=== PATIENT | female | born 1980 | race Caucasian/White ===

== ENCOUNTER → 2018-05-20 11:31 | Outpatient (REF) | payer MEDICAID, SELFPAY ==
--- NOTE | 2018-05-20 12:00 | PAPFT_PTH ---
PATIENT: Sigrid Rocha LOC: [facility] U#:[id number] AGE/SX: 45/F ROOM: RE05/20/[address]: Ann Sam : 1980 BED: DIS: SPEC #: [id number] RECD: 05/21/18 12:45 STATUS: GENET REQ #: [id number] JAZMINE: 05/20/18 12:[address]: Ann Sam DEPT: [facility] Cytology RECD BY: Angelita Galvan Tissues: 1 - CX/ENDOCX FOR PAP SMEARS Procedures: PAP THIN PREP/UVM Screening HPV DNA PROBE Comments: [id number] (CHLAMYDIA/GC)
[2018-05-22 15:32] LABS: GC Result Negative; Specimen Description SEE COMMENTS
[2018-05-22 15:51] LABS: Chlamydia Result Positive
== END ==
LOC: NCHCN 11:31
PROVIDERS: PCP Nurse Practitioner Family; Visit Provider Nurse Practitioner Family
DX: R31.9 Hematuria, unspecified (principal); Z11.3 Encounter for screening for infections with a predominantly sexual mode of transmission; Z12.4 Encounter for screening for malignant neoplasm of cervix; Z11.51 Encounter for screening for human papillomavirus (HPV)
CPT/HCPCS: 87491; 87591; 88142; 87086; 87624

== ENCOUNTER 2018-06-24 17:47 | Outpatient (REF) | payer MEDICAID, SELFPAY ==
[2018-06-26 14:17] LABS: Chlamydia Result Negative; GC Result Negative; Specimen Description URINE
== END 2018-06-24 18:07 ==
LOC: NCHCN 17:47
PROVIDERS: PCP Nurse Practitioner Family; Referring Provider Nurse Practitioner Family; Visit Provider Nurse Practitioner Family
DX: Z11.3 Encounter for screening for infections with a predominantly sexual mode of transmission (principal)
CPT/HCPCS: 87491; 87591

== ENCOUNTER 2018-06-25 12:48 | Outpatient (CLI) | payer MEDICAID, SELFPAY ==
--- NOTE | 2018-06-25 06:00 | DI.RAD_ITS ---
SYMPTOM/DIAGNOSIS: LUMBAR SPONDYLOSIS PAIN CLINIC: Fluoroscopy Time: 28.3 SECS Images submitted from the Pain Clinic demonstrate needle positioning over the facet joints at L3-4, L4-5 and L5-S1 in conjunction with injections carried out by Dr. Manrique. Please see the procedure report for further information.
[2018-06-25 12:57] VITALS: BP 127/84; PULSE 63; RESP 20; TEMP 36; O2SAT 98
--- NOTE | 2018-06-25 14:16 | PDOC.PAIN ---
Pain Clinic Procedure Note Current Active Problems Problem Status Onset Spondylosis of lumbar region without myelopathy or radiculopathy Chronic Lumbar/Sacral Medial Branch Blocks Bupivacaine GIA HARVEY has been referred to the [facility] for lumbar/sacral medial branch blocks. COMMENTS: Patient has low back pain with spondylosis and degenerative changes at L5/S1 ALIVIA HARVEY was interviewed and the medical record reviewed. There were no medical, pharmacologic, radiographic or other structural contraindications to attempting fluoroscopically guided local anesthetic lumbar/sacral medial branch blocks. Risks and expected side effects as well as potential benefit of the procedure were reviewed with ALIVIA HARVEY and voiced concerns addressed. The printed consent form was signed and witnessed. Standard time-out procedure was performed. ALIVIA HARVEY was placed in the prone position on the fluoroscopy table and automated blood pressure cuff and pulse oximeter applied. The skin entry points for approaching the anatomic target points of the segmental medial branches of { bilateral L3, L4, L5} were identified with anfluoroscopy and marked. Following thorough Chlorhexadine preparation of the skin and draping and 1% lidocaine infiltration of the skin entry points and subcutaneous tissues, a 5 inch 22-gauge spinal needle was placed under fluoroscopic guidance down on to the target point for each respective segmental medial branch.Position was confirmed in A/P, oblique and lateral views. At each point .5ml 0.5% Bupivacaine was injected. ALIVIA HARVEY's vital signs were stable throughout the procedure and were as recorded in the docflowsheet by the nursing staff. Follow up plans and appointments were discussed with ALIVIA HARVEY. ALIVIA HARVEY was instructed to keep careful note of how the usual pain was modified by these injections. Specifically, ALIVIA HARVEY was asked to keep a pain diary for the next 24 hours using a numeric pain scale of 0-10 and report these results at the follow-up visit. Post procedure instruction was given as documented in the nursing documentation and having met discharge criteria, ALIVIA HARVEY was discharged from the [facility]. Based on the medial branches blocked today, if they patient has adequate relief and we are able to proceed to radiofrequency ablation, the treatment should result in the denervation of the { bilateral L4-5, L5-S1 FACET JOINTS}. We would expect to denervate a total of {4} facets during the radiofrequency ablation. COMMENTS: Patient will need 7 inch needles for the next and greater than 150 mm RF needle. Pain went from 4/10-0/10. She will follow-up a repeat block with 2% lidocaine for RF depending insurance. CC: Ann Sam
--- NOTE | 2018-06-25 14:21 | PDOC.PAIN_ITS ---
Pain Clinic Procedure Note Current Active Problems Problem Status Onset Spondylosis of lumbar region without myelopathy or radiculopathy Chronic Lumbar/Sacral Medial Branch Blocks Bupivacaine GIA HARVEY has been referred to the [facility] for lumbar/sacral medial branch blocks. COMMENTS: Patient has low back pain with spondylosis and degenerative changes at L5/S1 ALIVIA HARVEY was interviewed and the medical record reviewed. There were no medical, pharmacologic, radiographic or other structural contraindications to attempting fluoroscopically guided local anesthetic lumbar/sacral medial branch blocks. Risks and expected side effects as well as potential benefit of the procedure were reviewed with ALIVIA HARVEY and voiced concerns addressed. The printed consent form was signed and witnessed. Standard time- out procedure was performed. ALIVIA HARVEY was placed in the prone position on the fluoroscopy table and automated blood pressure cuff and pulse oximeter applied. The skin entry points for approaching the anatomic target points of the segmental medial branches of { bilateral L3, L4, L5} were identified with anfluoroscopy and marked. Following thorough Chlorhexadine preparation of the skin and draping and 1% lidocaine infiltration of the skin entry points and subcutaneous tissues , a 5 inch 22-gauge spinal needle was placed under fluoroscopic guidance down on to the target point for each respective segmental medial branch.Position was confirmed in A/P, oblique and lateral views. At each point .5ml 0.5% Bupivacaine was injected. ALIVIA HARVEY's vital signs were stable throughout the procedure and were as recorded in the docflowsheet by the nursing staff. Follow up plans and appointments were discussed with ALIVIA HARVEY. ALIVIA HARVEY was instructed to keep careful note of how the usual pain was modified by these injections. Specifically, ALIVIA HARVEY was asked to keep a pain diary for the next 24 hours using a numeric pain scale of 0-10 and report these results at the follow-up visit. Post procedure instruction was given as documented in the nursing documentation and having met discharge criteria, ALIVIA HARVEY was discharged from the [facility]. Based on the medial branches blocked today, if they patient has adequate relief and we are able to proceed to radiofrequency ablation, the treatment should result in the denervation of the { bilateral L4-5, L5-S1 FACET JOINTS}. We would expect to denervate a total of {4} facets during the radiofrequency ablation. COMMENTS: Patient will need 7 inch needles for the next and greater than 150 mm RF needle. Pain went from 4/10-0/10. She will follow-up a repeat block with 2 % lidocaine for RF depending insurance. CC: Ann Sam
[2018-06-25] MEDS: Omnipaque 240 MG/ML 50 ML BTL IJ (14:26)
[2018-06-25] MEDS: Bupivacaine 0.5% Pres-Free 30 ML VIAL IJ (14:26)
[2018-06-25 14:27] VITALS: BP 135/79; PULSE 81; RESP 18; O2SAT 99
== END 2018-06-25 13:08 ==
PROVIDERS: PCP Nurse Practitioner Family; Visit Provider Anesthesiology Pain Medicine
DX: M47.816 Spondylosis without myelopathy or radiculopathy, lumbar region (principal); G89.29 Other chronic pain
CPT/HCPCS: 64493 ×2; 64494 ×2; 64495 ×2; 72100; 76000; Q9967

== ENCOUNTER 2018-07-16 11:38 | Outpatient (CLI) | payer MEDICAID, SELFPAY ==
[2018-07-16 11:42] VITALS: BP 122/83; PULSE 65; RESP 16; TEMP 36.1; O2SAT 100
[2018-07-16 12:50] VITALS: BP 128/89; PULSE 68; RESP 20; O2SAT 100
--- NOTE | 2018-07-16 12:51 | DI.RAD_ITS ---
SYMPTOMS/DIAGNOSIS: LUMBAR SPONDYLOSIS, LUMBAR MEDIAL BRANCH BLOCK PAIN CLINIC: Fluoroscopy Time: 66.6 sec Images submitted from the pain demonstrate needle positioning over the lower lumbar spine in conjunction with a lumbar medial branch block. Please see Dr. Allan's procedure report for further information.
--- NOTE | 2018-07-16 12:56 | PDOC.PAIN_ITS ---
Pain Clinic Procedure Note Current Active Problems Problem Status Onset Spondylosis of lumbar region without myelopathy or radiculopathy Chronic Lumbar/Sacral Medial Branch Blocks #2 GIA HARVEY has been referred to the [facility] for lumbar/sacral medial branch blocks. COMMENTS: She did great with the first LMBB. Patient was interviewed and the medical record reviewed. There were no medical , pharmacologic, radiographic or other structural contraindications to attempting fluoroscopically guided local anesthetic lumbar/sacral medial branch blocks. Risks and expected side effects as well as potential benefit of the procedure were reviewed and voiced concerns addressed. The printed consent form was signed and witnessed. Standard time-out procedure was performed. Patient was placed in the prone position on the fluoroscopy table and automated blood pressure cuff and pulse oximeter applied. The skin entry points for approaching the anatomic target points of the segmental medial branches of bilateral L3-L5DR were identified with fluoroscopy and marked. Following thorough Chlorhexadine preparation of the skin and draping and 1% lidocaine infiltration of the skin entry points and subcutaneous tissues, a 22 gauge 7 spinal needle was placed under fluoroscopic guidance down on to the target point for each respective segmental medial branch.Position was confirmed in A/P, oblique and lateral views with 0.25ml of omnipaque 240. At this point 0.5ml of 1% Lidocaine was injected to each segmental branch nerve. The needles were removed without difficulty. Vital signs were stable throughout the procedure and were as recorded in the docflowsheet by the nursing staff. Follow up plans and appointments were discussed and was instructed to keep careful note of how the usual pain was modified by these injections. Specifically was asked to keep a pain diary for the next 24 hours using a numeric pain scale of 0-10 and report these results at the follow-up visit. Post procedure instruction was given as documented in the nursing documentation and having met discharge criteria. Patient was discharged from the [facility]. Based on the medial branches blocked today, if the patient has adequate relief and we are able to proceed to radiofrequency ablation, the treatment should result in the denervation of the bilateral L4-L5 and L5-S1 FACET JOINTS. We would expect to denervate a total of 4 facets during the radiofrequency ablation. COMMENTS:She will call back with her 1-4 hour post-procedure pain scores. Quintin Allan DO, MPH [facility] - Subspecialty Board Certification in Pain Medicine CC: Ann Sam
[2018-07-16] MEDS: Lidocaine 2% Pres-Free 5 ML VIAL IJ (13:05)
[2018-07-16] MEDS: Omnipaque 240 MG/ML 50 ML BTL IJ (13:05)
== END 2018-07-16 11:58 ==
PROVIDERS: PCP Nurse Practitioner Family; Visit Provider Preventive Medicine Occupational Medicine
DX: M47.816 Spondylosis without myelopathy or radiculopathy, lumbar region (principal)
CPT/HCPCS: 64493 ×2; 64494 ×2; 72100; Q9967

== ENCOUNTER → 2018-08-05 | Outpatient (CLI) | payer MEDICAID, SELFPAY ==
--- NOTE | 2018-08-05 06:00 | DI.RAD_ITS ---
SYMPTOM/DIAGNOSIS: LUMBAR SPONDYLOSIS C-ARM: Fluoroscopy Time: 38.0 seconds/25.33mGy Fluoroscopy was utilized by Dr. Manrique during the performance of a bilateral lumbar medial branch block. Please refer to the procedure report for complete details.
[2018-08-05 11:46] VITALS: BP 118/84; PULSE 62; RESP 18; TEMP 36.8; O2SAT 98
[2018-08-05] MEDS: Midazolam 2 MG/2 ML VIAL IVP ×2 (12:18→12:26)
[2018-08-05] MEDS: fentaNYL 100 MCG/2 ML VIAL IVP ×2 (12:18→12:26)
[2018-08-05] MEDS: Lactated Ringers 1,000 ML 80 ML IV (12:19)
[2018-08-05 12:50] VITALS: BP 135/85; PULSE 69; RESP 12; O2SAT 97
--- NOTE | 2018-08-05 12:59 | PDOC.PAIN ---
Pain Clinic Procedure Note Current Active Problems Problem Status Onset Spondylosis of lumbar region without myelopathy or radiculopathy Chronic LUMBAR/SACRAL MEDIAL BRANCH RADIOFREQUENCY GIA HARVEY has been referred to the [facility] for radiofrequency treatment of chronic axial back pain. GIA has had long standing back pain thought to be facet joint generated and which has been refractory to other therapies. Local anesthetic medial branch blocks or intra-articular facet joint injections resulted in GIA reporting reduction of the usual axial component of pain for at least the duration of the local anesthetic effect. COMMENTS: Patient had good relief from 2 medial branch blocks Patient was interviewed and the medical record reviewed. There were no medical, pharmacologic, radiographic or other structural contraindications to attempting fluoroscopically guided radiofrequency treatment. Risks and expected side effects as well as potential benefit of the procedure were reviewed and voiced concerns addressed. The printed consent form was signed and witnessed. Standard time-out procedure was performed. Patient was placed in the prone position on the fluoroscopy table and automated blood pressure cuff and pulse oximeter applied. The skin entry points for approaching the anatomic target points of the segmental medial branches of { bilateral: L3, 4, 5} were identified with fluoroscopy and marked. Following thorough Chlorhexadine preparation of the skin and draping and 1% lidocaine infiltration of the skin entry points and subcutaneous tissues, a single 18 guage curved 20 cm 10mm active tip radiofrequency cannula was placed under fluoroscopic guidance along or across the anatomic course of each respective segmental medial branch. Each placement was stimulated at 50Hz and les then 0.5V for medial branch sensory localization and the at 2Hz and up to 3 times the sensory voltage without any evidence of distal myotomal stimulation. 1cc of 1% ;idocaine was injected at each site. At each placement a continuous mode radiofrequency treatment was done at 90 degrees C for 90secs and then rotated 180degrees and then repeated. This radiofrequency treatment should result in the denervation of the {/bilateral L4-5, L5-S1 FACET JOINTS}.~ A total of {4} facets were expected to be denervated from today's treatment. Vital signs were stable throughout the procedure and were as recorded in the docflowsheet by the nursing staff. If given, dosages of intravenous drugs for anxiolysis and analgesia were documented in the Medication Administration Record (MAR). Follow up plans and appointments were discussed. Post procedure instruction was given as documented in the nursing documentation and having met discharge criteria, GIA was discharged from the [facility]. COMMENTS: Versed 2 mg and fentanyl 100 g given. Patient will follow-up as needed. CC: Ann Sam
--- NOTE | 2018-08-05 13:02 | PDOC.PAIN_ITS ---
Pain Clinic Procedure Note Current Active Problems Problem Status Onset Spondylosis of lumbar region without myelopathy or radiculopathy Chronic LUMBAR/SACRAL MEDIAL BRANCH RADIOFREQUENCY GIA HARVEY has been referred to the [facility] for radiofrequency treatment of chronic axial back pain. GIA has had long standing back pain thought to be facet joint generated and which has been refractory to other therapies. Local anesthetic medial branch blocks or intra- articular facet joint injections resulted in GIA reporting reduction of the usual axial component of pain for at least the duration of the local anesthetic effect. COMMENTS: Patient had good relief from 2 medial branch blocks Patient was interviewed and the medical record reviewed. There were no medical , pharmacologic, radiographic or other structural contraindications to attempting fluoroscopically guided radiofrequency treatment. Risks and expected side effects as well as potential benefit of the procedure were reviewed and voiced concerns addressed. The printed consent form was signed and witnessed. Standard time-out procedure was performed. Patient was placed in the prone position on the fluoroscopy table and automated blood pressure cuff and pulse oximeter applied. The skin entry points for approaching the anatomic target points of the segmental medial branches of { bilateral: L3, 4, 5} were identified with fluoroscopy and marked. Following thorough Chlorhexadine preparation of the skin and draping and 1% lidocaine infiltration of the skin entry points and subcutaneous tissues, a single 18 guage curved 20 cm 10mm active tip radiofrequency cannula was placed under fluoroscopic guidance along or across the anatomic course of each respective segmental medial branch. Each placement was stimulated at 50Hz and les then 0.5V for medial branch sensory localization and the at 2Hz and up to 3 times the sensory voltage without any evidence of distal myotomal stimulation. 1cc of 1% ;idocaine was injected at each site. At each placement a continuous mode radiofrequency treatment was done at 90 degrees C for 90secs and then rotated 180degrees and then repeated. This radiofrequency treatment should result in the denervation of the {/ bilateral L4-5, L5-S1 FACET JOINTS}.~ A total of {4} facets were expected to be denervated from today's treatment. Vital signs were stable throughout the procedure and were as recorded in the docflowsheet by the nursing staff. If given, dosages of intravenous drugs for anxiolysis and analgesia were documented in the Medication Administration Record (MAR). Follow up plans and appointments were discussed. Post procedure instruction was given as documented in the nursing documentation and having met discharge criteria, GIA was discharged from the [facility]. COMMENTS: Versed 2 mg and fentanyl 100 g given. Patient will follow-up as needed. CC: Ann Sam
== END ==
PROVIDERS: PCP Nurse Practitioner Family; Visit Provider Anesthesiology Pain Medicine
DX: M47.816 Spondylosis without myelopathy or radiculopathy, lumbar region (principal); G89.29 Other chronic pain
CPT/HCPCS: 64635 ×2; 64636 ×2; 72100; J2250; J3010

== ENCOUNTER 2018-11-01 10:49 | Emergency (ER) | payer MEDICAID, SELFPAY ==
--- NOTE | 2018-11-01 11:05 | NUR.NOTE ---
pt states that she developed a sore throat 4 days ago which developed to cough fever and chills pt has been in contact with sick child however child was not diagnosed pt complains of right ear pain 8/10 nnd 9/10 pain when she coughs
[2018-11-01 11:07] VITALS: BP 138/94; PULSE 97; RESP 16; TEMP 36.5; O2SAT 95
[2018-11-01] MEDS: Ibuprofen 400 MG TAB PO (12:49)
--- NOTE | 2018-11-01 12:55 | W.ED.GENAD ---
Discharge Plan Disposition Patient Disposition: HOME Condition: Stable Discharge Details Chief Complaint: GenMedical Clinical Impression: Influenza Primary Care Provider: Ann Sam ED Provider: Neelam Davis Home Meds and New Rx's Prescriptions: New oseltamivir [Tamiflu] 75 mg capsule 75 mg PO BID 5 Days Qty: 9 RF: 0 Continued ibuprofen 800 MG tablet 800 mg PO TID RF: 0 albuterol sulfate [ProAir HFA] 8.5 GM HFA aerosol inhaler 2 puff Inhalation Q4H PRN RF: 0 komybripjafq-Ko-dzjb-minerals [Women's Daily Formula] 1 EACH tablet 1 tab-cap PO DAILY RF: 0 Tens Units and Tens Electrodes [Cefaly] 1 EACH COMBO..PKG Miscellaneous Qty: 1 RF: 0 sumatriptan succinate [Imitrex] 25 MG tablet 25 mg PO PRN PRNRF: 0 cyclobenzaprine 10 MG tablet 10 mg PO Q8H PRN PRNQty: 20 RF: 0 Discharge Instructions Instructions: Oseltamivir (By mouth), Influenza (ED) Additional Instructions: Please return immediately to the emergency department if you develop any new or worsening symptoms or if you become otherwise concerned. It is extremely important that you make an appointment to be seen by your primary care doctor soon as possible and follow-up for this visit. Referrals: Ann Sam [Primary Care Provider] - Discharge Data Discharge Date/Time-TO BE ENTERED AT DEPARTURE: 11/01/18 15:19 Medical Decision Making Sigrid Cardoza 38-year-old with history of asthma, depression presenting to the emergency department 4 days of cough, generalized body aches, sore throat, ear pain. On exam patient is nontoxic appearing. Benign cardiopulmonary exam. Benign ENT exam. Concern for pneumonia versus influenza versus other viral respiratory infection. Exam/history not consistent with dehydration, sepsis, meningitis, ACS, PE, other acute emergent life-threatening process. Plan for chest x-ray, influenza swab, ibuprofen. Per Radiology: PA AND LATERAL CHEST: The heart size is normal. The lungs appear clear. No infiltrate or effusion is seen. IMPRESSION: Negative chest xray. Flu swab positive. Rx for Tamiflu. Had a lengthy discussion with the patient regarding return to emergency department cautions, home care, and importance of outpatient follow-up since possible with her PCP. Patient verbalized understanding of the plan and is amenable. Medical Records Medical records reviewed: Yes I reviewed the patient's medical records. Imaging Data Radiologic Study: Attestation: I personally reviewed and interpreted this imaging study as follows: Lab Data Lab results reviewed: Yes I reviewed the patient's lab results. HPI General Mode of arrival: ambulatory. Date/Time Provider Initiated Documentation: 11/01/18 11:18. Limitations to Documentation: no limitations. Information obtained by: patient, RN notes reviewed and old records reviewed. HPI Narrative: Sigrid Cardoza 38-year-old woman with history of asthma, depression presenting to the emergency department with cough. Patient reports that 4 days ago she developed a mild sore throat, cough, generalized body aches, nasal congestion, and fatigue. Patient has also had subjective fevers at home. She reports that she has chest pain during coughing, body aches, and ear pain. No other pain. Patient reports that the sore throat resolved 2 days ago. She denies shortness of breath, vomiting, diarrhea, skin rash. She reports that she has been eating and drinking as usual. No recent travel. Related Data Home Medications Medication Instructions Recorded Confirmed sumatriptan succinate [Imitrex] 25 mg PO PRN PRN 12/24/14 08/05/18 cyclobenzaprine 10 mg PO Q8H PRN PRN #20 tab 07/08/17 08/05/18 albuterol sulfate [ProAir HFA] 2 puff INHALATION Q4H PRN inhaler 04/25/18 08/05/18 ibuprofen 800 mg PO TID tab-cap 04/25/18 08/05/18 vszpdwirgzlu-Ai-syou-minerals 1 tab-cap PO DAILY tab-cap 04/25/18 08/05/18 [Women's Daily Formula] oseltamivir [Tamiflu] 75 mg PO BID 5 Days #9 cap 11/01/18 Previous Rx's Medication Instructions Recorded cyclobenzaprine 10 mg PO Q8H PRN PRN #20 tab 07/08/17 oseltamivir [Tamiflu] 75 mg PO BID 5 Days #9 cap 11/01/18 Allergies Allergy/AdvReac Type Severity Reaction Status Date / Time migraine medication Allergy Itching Uncoded 11/01/18 11:10 General Stated Complaint: GenMedical RUPA: 3 Review of Systems Review of Systems Constitutional: Reports subjective fevers Eyes: denies eye pain ENT: denies facial pain, dental pain, reports resolved sore throat Cardiovascular: denies chest pain Respiratory: denies SOB, reports cough GI: denies abdominal pain, vomiting, diarrhea : denies flank pain MSK: denies back pain, neck pain, reports generalized arthralgias and myalgias Skin: denies rash Neuro: denies headaches, numbness, weakness PFSH Medical History Spondylosis of lumbar region without myelopathy or radiculopathy (Chronic) Chronic low back pain Eczema Irregular intermenstrual bleeding Right knee pain Social History Smoking/Tobacco Use Status: Former Tobacco Use Exam Narrative Exam Narrative: Constitutional: zfj-ablzj-neohqlmmq, pleasant, conversing normally HENT: head atraumatic/normocephalic/normal inspection, mucous membranes moist, normal posterior pharynx Eyes: conjunctiva normal, sclera normal, pupils 3mm b/l Neck: no stridor, normal ROM, trachea midline Chest: normal inspection Resp: normal work of breathing, LCTAB Cardio: normal rate, normal rhythm, no murmur appreciated Back: normal inspection, no rash Skin: warm, dry, normal color, no rash Neuro: alert, not altered, grossly non-focal, normal tone Ext: no edema Psych: normal mood, normal affect, normal behavior Course Vital Signs Temperature 36.5 C 11/01/18 11:07 Pulse 97 H 11/01/18 11:07 Respiratory Rate 16 11/01/18 11:07 Blood Pressure 138/94 H 11/01/18 11:07 Pulse Oximetry 95 11/01/18 11:07 Temperature 36.5 C 11/01/18 11:07 Temperature Source Skin 11/01/18 11:07 Pulse 97 H 11/01/18 11:07 Respiratory Rate 16 11/01/18 11:07 Respiratory Effort 11/01/18 11:09 Blood Pressure 138/94 H 11/01/18 11:07 Blood Pressure Position Sitting 11/01/18 11:07 Pulse Oximetry 95 11/01/18 11:07 Oxygen Delivery Method Room Air 11/01/18 11:07 Oxygen Flow Rate 0 11/01/18 11:07 Pain Level 8 11/01/18 11:07 Lab/Test Results Lab/Test Results: 11/01/18 12:50 Nasopharynx Influenza Types A,B Antigen - Pending
--- NOTE | 2018-11-01 13:04 | DI.RAD_ITS ---
SYMPTOM/DIAGNOSIS: COUGH PA AND LATERAL CHEST: The heart size is normal. The lungs appear clear. No infiltrate or effusion is seen. IMPRESSION: Negative chest xray.
--- NOTE | 2018-11-01 13:26 | DI.VRAD_ITS ---
EXAM: XR Chest, 2 Views EXAM DATE/TIME: 11/01/2018 1:05 PM CLINICAL HISTORY: 38 years old, female; Signs and symptoms; Cough TECHNIQUE: XR of the chest, 2 views. COMPARISON: No relevant prior studies available. FINDINGS: Lungs: Unremarkable. No consolidation. Pleural space: Unremarkable. No pleural effusion. No pneumothorax. Heart/Mediastinum: Mild cardiomegaly Bones/joints: Unremarkable. IMPRESSION: No acute findings. Dictated and Authenticated by: Phillip Keller MD. Ordering:LOU Richter MD
[2018-11-01] MEDS: Oseltamivir 75 MG CAP PO (15:13)
--- NOTE | 2018-11-04 13:51 | ED.GENADUL_ITS ---
Discharge Plan Disposition Patient Disposition: HOME Condition: Stable Discharge Details Chief Complaint: GenMedical Clinical Impression: Influenza Primary Care Provider: Ann Sam ED Provider: Neelam Davis Home Meds and New Rx's Prescriptions: New oseltamivir [Tamiflu] 75 mg capsule 75 mg PO BID 5 Days Qty: 9 RF: 0 Continued ibuprofen 800 MG tablet 800 mg PO TID RF: 0 albuterol sulfate [ProAir HFA] 8.5 GM HFA aerosol inhaler 2 puff Inhalation Q4H PRN RF: 0 pweatbselmqu-Rm-zfxu-minerals [Women's Daily Formula] 1 EACH tablet 1 tab-cap PO DAILY RF: 0 Tens Units and Tens Electrodes [Cefaly] 1 EACH COMBO..PKG Miscellaneous Qty: 1 RF: 0 sumatriptan succinate [Imitrex] 25 MG tablet 25 mg PO PRN PRNRF: 0 cyclobenzaprine 10 MG tablet 10 mg PO Q8H PRN PRNQty: 20 RF: 0 Discharge Instructions Instructions: Oseltamivir (By mouth), Influenza (ED) Additional Instructions: Please return immediately to the emergency department if you develop any new or worsening symptoms or if you become otherwise concerned. It is extremely important that you make an appointment to be seen by your primary care doctor soon as possible and follow-up for this visit. Referrals: Ann Sam [Primary Care Provider] - Discharge Data Discharge Date/Time-TO BE ENTERED AT DEPARTURE: 11/01/18 15:19 Medical Decision Making Sigrid Cardoza 38-year-old with history of asthma, depression presenting to the emergency department 4 days of cough, generalized body aches, sore throat, ear pain. On exam patient is nontoxic appearing. Benign cardiopulmonary exam. Benign ENT exam. Concern for pneumonia versus influenza versus other viral respiratory infection. Exam/history not consistent with dehydration, sepsis, meningitis, ACS, PE, other acute emergent life-threatening process. Plan for chest x-ray, influenza swab, ibuprofen. Per Radiology: PA AND LATERAL CHEST: The heart size is normal. The lungs appear clear. No infiltrate or effusion is seen. IMPRESSION: Negative chest xray. Flu swab positive. Rx for Tamiflu. Had a lengthy discussion with the patient regarding return to emergency department cautions, home care, and importance of outpatient follow-up since possible with her PCP. Patient verbalized unde rstanding of the plan and is amenable. Medical Records Medical records reviewed: Yes I reviewed the patient's medical records. Imaging Data Radiologic Study: Attestation: I personally reviewed and interpreted this imaging study as follows: Lab Data Lab results reviewed: Yes I reviewed the patient's lab results. HPI General Mode of arrival: ambulatory . Date/Time Provider Initiated Documentation: 11/01/18 11:18 . Limitations to Documentation: no limitations . Information obtained by: patient, RN notes reviewed and old records reviewed . HPI Narrative: Sigrid Cardoza 38-year-old woman with history of asthma, depression presenting to the emergency department with cough. Patient reports that 4 days ago she developed a mild sore throat, cough, generalized body aches, nasal congestion, and fatigue. Patient has also had subjective fevers at home. She reports that she has chest pain during coughing, body aches, and ear pain. No other pain. Patient reports that the sore throat resolved 2 days ago. She denies shortness of breath, vomiting, diarrhea, skin rash. She reports that she has been eating and drinking as usual. No recent travel. Related Data Home Medications Medication Instructions Recorded Confirmed sumatriptan succinate [Imitrex] 25 mg PO PRN PRN 12/24/14 08/05/18 cyclobenzaprine 10 mg PO Q8H PRN PRN #20 tab 07/08/17 08/05/18 albuterol sulfate [ProAir HFA] 2 puff INHALATION Q4H PRN inhaler 04/25/18 08/05/18 ibuprofen 800 mg PO TID tab-cap 04/25/18 08/05/18 gorvqtuclreb-Sf-olqx-minerals 1 tab-cap PO DAILY tab-cap 04/25/18 08/05/18 [Women's Daily Formula] oseltamivir [Tamiflu] 75 mg PO BID 5 Days #9 cap 11/01/18 Previous Rx's Medication Instructions Recorded cyclobenzaprine 10 mg PO Q8H PRN PRN #20 tab 07/08/17 oseltamivir [Tamiflu] 75 mg PO BID 5 Days #9 cap 11/01/18 Allergies Allergy/AdvReac Type Severity Reaction Status Date / Time migraine medication Allergy Itching Uncoded 11/01/18 11:10 General Stated Complaint: GenMedical RUPA: 3 Review of Systems Review of Systems Constitutional: Reports subjective fevers Eyes: denies eye pain ENT: denies facial pain, dental pain, reports resolved sore throat Cardiovascular: denies chest pain Respiratory: denies SOB, reports cough GI: denies abdominal pain, vomiting, diarrhea : denies flank pain MSK: denies back pain, neck pain, reports generalized arthralgias and myalgias Skin: denies rash Neuro: denies headaches, numbness, weakness PFSH Medical History Spondylosis of lumbar region without myelopathy or radiculopathy (Chronic) Chronic low back pain Eczema Irregular intermenstrual bleeding Right knee pain Social History Smoking/Tobacco Use Status: Former Tobacco Use Exam Narrative Exam Narrative: Constitutional: mig-yaxda-cdvgemjwd, pleasant, conversing normally HENT: head atraumatic/normocephalic/normal inspection, mucous membranes moist, normal posterior pharynx Eyes: conjunctiva normal, sclera normal, pupils 3mm b/l Neck: no stridor, normal ROM, trachea midline Chest: normal inspection Resp: normal work of breathing, LCTAB Cardio: normal rate, normal rhythm, no murmur appreciated Back: normal inspection, no rash Skin: warm, dry, normal color, no rash Neuro: alert, not altered, grossly non-focal, normal tone Ext: no edema Psych: normal mood, normal affect, normal behavior Course Vital Signs Temperature 36.5 C 11/01/18 11:07 Pulse 97 H 11/01/18 11:07 Respiratory Rate 16 11/01/18 11:07 Blood Pressure 138/94 H 11/01/18 11:07 Pulse Oximetry 95 11/01/18 11:07 Temperature 36.5 C 11/01/18 11:07 Temperature Source Skin 11/01/18 11:07 Pulse 97 H 11/01/18 11:07 Respiratory Rate 16 11/01/18 11:07 Respiratory Effort 11/01/18 11:09 Blood Pressure 138/94 H 11/01/18 11:07 Blood Pressure Position Sitting 11/01/18 11:07 Pulse Oximetry 95 11/01/18 11:07 Oxygen Delivery Method Room Air 11/01/18 11:07 Oxygen Flow Rate 0 11/01/18 11:07 Pain Level 8 11/01/18 11:07 Lab/Test Results Lab/Test Results: 11/01/18 12:50 Nasopharynx Influenza Types A,B Antigen - Pending
== END 2018-11-01 15:19 | disposition home or self-care (01) ==
PROVIDERS: Emergency Provider Student in an Organized Health Care Education/Training Program; PCP Nurse Practitioner Family
DX: J11.1 Influenza due to unidentified influenza virus with other respiratory manifestations (principal); J02.9 Acute pharyngitis, unspecified
CPT/HCPCS: 87449; 99284; 71046

== ENCOUNTER 2019-04-24 07:34 | Outpatient (REF) | payer MEDICAID, SELFPAY ==
[2019-04-24 11:34] LABS: Calculated LDL 96 mg/dL; Cholesterol 151 mg/dL (50-200); Glucose 96 mg/dL (70-100); HDL Cholesterol 47 mg/dL (40-60); Triglyceride 43 mg/dL (30-150)
[2019-04-24 11:44] LABS: Hemoglobin A1C 5.8 % (4.5-6.2)
== END 2019-04-24 07:54 ==
LOC: NCHCN 07:34
PROVIDERS: PCP Family Medicine; Visit Provider Family Medicine
DX: Z13.1 Encounter for screening for diabetes mellitus (principal); Z13.220 Encounter for screening for lipoid disorders
CPT/HCPCS: 80061; 82947; 83721; 83036

== ENCOUNTER 2019-05-25 09:47 | Outpatient (REF) | payer MEDICAID, SELFPAY ==
--- NOTE | 2019-05-25 08:30 | PAPFT_PTH ---
PATIENT: Sigrid Rocha LOC: [facility] U#:[id number] AGE/SX: 39/F ROOM: RE05/25/[address]: Pawel Patel : 1980 BED: DIS: 05/25/2019 SPEC #: [id number] RECD: 05/25/19 13:01 STATUS: GENET GONZALEZ #: [id number] JAZMINE: 05/25/19 08:[address]: Pawel Patel DEPT: [facility] Cytology RECD BY: Angelita Galvan ENTERED: 05/25/19 13:01 SP TYPE: PAPFT OTHR DR: Anusha Ingram Tissues: 1 - CX/ENDOCX FOR PAP SMEARS Procedures: PAP THIN PREP/[facility] Screening HPV DNA PROBE Comments: [id number]
== END 2019-05-25 10:07 ==
LOC: NCHCN 09:47
PROVIDERS: PCP Family Medicine; Visit Provider Nurse Practitioner Family
DX: Z12.4 Encounter for screening for malignant neoplasm of cervix (principal); Z11.51 Encounter for screening for human papillomavirus (HPV)
CPT/HCPCS: 88142; 87624

== ENCOUNTER 2019-06-17 02:37 | Outpatient (CLI) | payer MEDICAID, SELFPAY ==
--- NOTE | 2019-06-23 12:35 | HOLTER_ITS ---
DATE OF DICTATION: June 22, 2019 48-HOUR REPORT Baseline rhythm sinus. Rare single PAC. No SVT or atrial fibrillation. Frequent single PVC, 956 total, 0.4% total beat. No VT. No symptoms. No significant bradycardia. Average heart rate 86 bpm, range 60-129 bpm.
== END 2019-06-17 02:57 ==
PROVIDERS: PCP Nurse Practitioner Family; Visit Provider Nurse Practitioner Family
DX: R00.2 Palpitations (principal); I49.3 Ventricular premature depolarization
CPT/HCPCS: 93225

== ENCOUNTER 2019-06-20 08:28 | Outpatient (CLI) | payer MEDICAID, SELFPAY | END 2019-06-20 08:48 | PROVIDERS: PCP Nurse Practitioner Family; Visit Provider Nurse Practitioner Family | DX: R00.2 Palpitations (principal); I49.3 Ventricular premature depolarization | CPT/HCPCS: 93226 ==

== ENCOUNTER 2020-01-07 16:09 | Outpatient (REF) | payer MEDICAID, SELFPAY ==
[2020-01-11 10:22] LABS: Hepatitis C Ab w Rflx HCV PCR Negative (Negative)
[2020-01-11 10:40] LABS: HIV-1/2 Ag & Ab Screen Negative (Negative)
== END 2020-01-07 16:29 ==
LOC: NCHCN 16:09
PROVIDERS: PCP Nurse Practitioner Family; Visit Provider Family Medicine
DX: Z11.4 Encounter for screening for human immunodeficiency virus [HIV] (principal); Z01.84 Encounter for antibody response examination
CPT/HCPCS: 86803; 87389

== ENCOUNTER 2020-07-13 08:30 | Outpatient (REF) | payer MEDICAID, SELFPAY ==
[2020-07-13 20:49] LABS: HCT 39.5 % (36.0-46.0); HGB 12.9 g/dL (11.2-15.7); MCH 29.6 pg (27.0-33.0); MCHC 32.7 % (32.0-36.0); MCV 90.6 fL (80-95); Platelet Count 301 10^3/uL (130-400); RBC 4.36 10^6/uL (3.93-5.22); RDW 12.7 % (11.7-14.6); RDW-SD 41.8 fL; WBC 7.38 10^3/uL (4.4-10.8)
[2020-07-13 21:18] LABS: ALT 30 U/L (14-59); AST 16 U/L (15-37); Albumin 3.3 g/dL (3.4-5.0); Alkaline Phosphatase 94 U/L (46-116); Anion Gap 10.9 mmol/L (3-11); BUN 13 mg/dL (7-18); Bilirubin, Total 0.2 mg/dL (0.2-1.0); CO2 24.1 mmol/L (21.0-32.0); CREATININE 0.69 mg/dL (0.55-1.02); Calcium 8.7 mg/dL (8.5-10.1); Calculated LDL 105 mg/dL (<100); Chloride 107 mmol/L (98-107); Cholesterol 160 mg/dL (<200); Glucose 98 mg/dL (74-106); HDL Cholesterol 46 mg/dL (40-60); Potassium 4.2 mmol/L (3.5-5.1); Sodium 142 mmol/L (136-145); TSH (W/Ref FT4) 2.23 uIU/mL (0.36-3.74); Total Protein 6.1 g/dL (6.4-8.2); Triglyceride 48 mg/dL (<150)
[2020-07-14 04:32] LABS: Vitamin D 25 Total 23.6 ng/ml (30-100)
== END 2020-07-13 08:50 ==
LOC: NCHCN 08:30
PROVIDERS: PCP Nurse Practitioner Family; Visit Provider Nurse Practitioner Family
DX: R73.03 Prediabetes (principal); Z68.43 Body mass index [BMI] 50.0-59.9, adult
CPT/HCPCS: 80053; 80061; 82306; 85027; 84443

== ENCOUNTER 2021-06-12 07:25 | Outpatient (CLI) | payer MEDICAID, SELFPAY ==
--- NOTE | 2021-06-12 | DI.RAD_ITS ---
Exam(s) XR ANKLE RT COMPLETE EXAM: XR ANKLE RT COMPLETE CLINICAL HISTORY: ANKLE SWELLING M25.473. TECHNIQUE: 2D digital imaging was performed. COMPARISON: CR LEFT ANKLE COMPLETE from 02/02/2015 FINDINGS: BONES: No acute fracture is present. No bony destructive lesion is seen. Some thickening distal Ac hilles tendon. Spurring at the Achilles insertion. Prominent plantar calcaneal spur. Mild spurring at the tips of the malleoli and adjacent aspect of the talus. No talar dome defect. JOINTS: The ankle mortise is normally aligned. IMPRESSION: Heel spurs. Dorsal soft tissue swelling at distal Achilles. DATA REPOSITORY: RADIATION DOSE DELIVERED:
== END 2021-06-12 07:45 ==
PROVIDERS: PCP Nurse Practitioner Family; Visit Provider Nurse Practitioner
DX: M25.471 Effusion, right ankle (principal); M77.31 Calcaneal spur, right foot
CPT/HCPCS: 73610

== ENCOUNTER 2021-08-10 07:16 | Outpatient (CLI) | payer MEDICAID, SELFPAY ==
--- NOTE | 2021-08-10 08:28 | DI.RAD_ITS ---
Exam(s) XR LUMBAR SPINE COMPLETE EXAM: XR LUMBAR SPINE COMPLETE CLINICAL HISTORY: BACK PAIN, S/P FALL, M54.9. TECHNIQUE: 2D digital imaging was performed. COMPARISON: MR MRI LUMBAR SPINE 2 from 03/14/2018 FINDINGS: BONES: No fracture or destructive lesion. Vertebral bodies are normal in height. Small endplate oste ophytes.. Mild facet hypertrophy identified. DISKS: Intervertebral disc spaces are maintained. ALIGNMENT: Lumbar spinal alignment is within normal limits. SOFT TISSUE: Prior cholecystectomy. Bowel gas pattern unremarkable.. IMPRESSION: Mild degenerative changes. DATA REPOSITORY: RADIATION DOSE DELIVERED:
== END 2021-08-10 07:36 ==
PROVIDERS: PCP Nurse Practitioner Family; Visit Provider Nurse Practitioner
DX: M54.59 Other low back pain (principal); M47.816 Spondylosis without myelopathy or radiculopathy, lumbar region; Z91.81 History of falling
CPT/HCPCS: 72110

== ENCOUNTER 2021-08-17 19:01 | Outpatient (REF) | payer MEDICAID, SELFPAY ==
[2021-08-17 19:13] LABS: ESR 14 mm/hr (0-20)
[2021-08-17 19:45] LABS: C-Reactive Protein 0.61 mg/dL (0.0-0.3); Creatine Kinase 115 U/L (26-192)
[2021-08-18 17:39] LABS: Rheumatoid Factor <8.6 IU/mL (<12.0)
[2021-08-21 08:43] LABS: Cyclic Citrullinated Peptide <2.5 U/mL (<5.0)
[2021-08-21 14:42] LABS: ANA Interpretation Negative (Negative)
== END 2021-08-17 19:02 | disposition home or self-care (01) ==
LOC: NCHCN 19:01
PROVIDERS: PCP Nurse Practitioner Family; Visit Provider Nurse Practitioner
DX: M79.18 Myalgia, other site (principal); M25.59 Pain in other specified joint
CPT/HCPCS: 82550; 85652; 86200; 86038; 86140; 86431